=== PATIENT | male | born 1995 | race African-American/Black ===

== ENCOUNTER 2021-06-04 04:01 | Emergency (ER) | payer MEDICAID ==
[~2021-06-04] VITALS: Ht 180.3 cm; Wt 100.0 kg
[2021-06-04 05:37] LABS: CHLORIDE 106 mEq/L (98-107)
[2021-06-04 05:41] LABS: BASOPHILS % 0.3 % (0.0-2.0); EOSINOPHILS % 1.3 % (0.0-5.0); HEMATOCRIT. 42.7 % (42.0-52.0); HEMOGLOBIN. 14.2 g/dL (14.0-18.0); LYMPHOCYTES % 9.6 % (20.0-50.0); MEAN CORPUSCULAR HEMOGLOBIN 28.4 pg (28.0-32.0); MEAN CORPUSCULAR VOLUME 85.6 fL (80.0-94.0); MEAN PLATELET VOLUME 7.1 fl (7.4-10.4); MONOCYTES % 7.4 % (2.0-8.0); NEUTROPHILS % 81.4 % (40.0-76.0); PLATELET 332 x1000/uL (130-400); RED BLOOD CELL COUNT 4.99 mill/uL (4.7-6.1); RED CELL DISTRIBUTION WIDTH 12.3 % (11.6-14.6)
[2021-06-04] MEDS ORDERED: METOCLOPRAMIDE HCL 10MG/2ML VIAL IM SCH (07:30)
[2021-06-04] MEDS ORDERED: ONDA4TAB5 MT (07:30)
[2021-06-04 07:38] VITALS: BP 143/86
== END 2021-06-04 07:45 | disposition home or self-care (01) ==
LOC: ER 04:01
DX: R11.2 Nausea with vomiting, unspecified (principal); R10.0 Acute abdomen; R19.7 Diarrhea, unspecified; F12.90 Cannabis use, unspecified, uncomplicated; Z71.51 Drug abuse counseling and surveillance of drug abuser
CPT/HCPCS: 36415; 80048; 80076; 83690; 85025; 96372; 99283; J2765